=== PATIENT | female | born 1975 | race Caucasian/White ===

== ENCOUNTER → 2017-02-10 | Outpatient (CLI) | payer OTHER ==
[~2017-02-10] MED LIST: ABILIFY20 MG PO; ACARBOSE100 MG PO; ACCUNEB SO1.25 MG/1 INH; AMARYL4 MG; AMARYL4 MG PO; AMBIEN 10 MG TA10 MG PO; APAP500 PO; BENADRYL25 MG PO; CALCIUM 500 +1 EAC5 PO; CENTRUM COMPLE1 EACH; CLONAZEPAM PO; COMBIVENT; COMBIVENT INH; CYMBALTA60 MG PO; ESTROVEN ENER400 MCG PO; FISH OIL 1,001000 M2 PO; GARLIC OIL1 EACH PO; GLUCOPHAGE850 MG PO; GLUCOTROL5 MG PO; JANUVIA100 MG; LAMOTRIGINE200 MG PO; LASIX 40 MG TAB40 M1; LEVEMIR SUBQ; LISINOPRIL5 MG PO; MEDROL DOSPAK21 TAB PO; MOBIC15 MG; MOBIC15 MG PO; MUCINEX TA600 MG/TA2 PO; NEURONTIN300 MG PO; NORCO 5-325 TA1 EACH PO; NOVOLOG FL100 UNIT/M SUBQ; OXCARBAZEPINE300 M1 PO; SYMBICORT160 MCG/4.; TRINATE TABLET1 TAB PO; TYLENOL325 MG PO; ULTRAM 50MG TAB50 MG PO; VENTOLIN HFA 1818 GM INH; VITAMIN B-12500 MCG PO; VITAMIN D-32000 UNIT PO; VITAMIN E400 UNIT PO; ZOCOR 20 MG TAB20 M1 PO
--- NOTE | ~2017-02-10 | EEG ---
[facility] [place] [address] ELECTROENCEPHALOGRAM Name: BESSIE DICKSON Room #: REG JEREMYGeoff M.R.#: [id number] Admission: 02/10/17 Attend Phys: So Nunez DNP Discharge: Date of : 75 Report #: [id number] THIS REPORT FOR: //name// CC: So Nunez Kyle Daniel DATE OF EE02/10/2017 This patient is being evaluated for the possibility of seizure. EEG was done by placing the electrodes by standard 10-20 system of electrode placement. Both referential and sequential montages were used for recording. Background activity in this patient's EEG is about 11 Hz and 40 microvolts. This is a symmetrical activity. Photic stimulation is unremarkable. This patient become drowsy that is associated with bilateral slowing and a few vertex sharp waves on both sides, which were symmetrical throughout the record, no active epileptiform activity was noticed. IMPRESSION: This patient's EEG is within normal limits. No active epileptiform activity was noticed during this record. It might be mentioned that EEG can be normal in a patient with a seizure disorder. Thank you very much for this referral. <ELECTRONICALLY SIGNED> By: Jose Francisco Hopkins MD 02/12/17 0731 1920 2252 Jose Francisco Hopkins MD /nt
== END ==
LOC: NEURO 02-09 07:01
DX: R56.9 Unspecified convulsions (principal)

== ENCOUNTER 2019-01-06 11:21 | Emergency (ER) | payer OTHER ==
[~2019-01-06] VITALS: Ht 157.5 cm; Wt 92.5 kg
[2019-01-06 13:01] VITALS: BP 138/79
== END 2019-01-06 12:47 | disposition home or self-care (01) ==
LOC: ER 11:21
DX: M65.232 Calcific tendinitis, left forearm (principal); F17.210 Nicotine dependence, cigarettes, uncomplicated; J44.9 Chronic obstructive pulmonary disease, unspecified; E11.9 Type 2 diabetes mellitus without complications; F31.9 Bipolar disorder, unspecified; J45.909 Unspecified asthma, uncomplicated; M10.9 Gout, unspecified; E11.43 Type 2 diabetes mellitus with diabetic autonomic (poly)neuropathy; G47.30 Sleep apnea, unspecified; Z88.8 Allergy status to other drugs, medicaments and biological substances; Z86.73 Personal history of transient ischemic attack (TIA), and cerebral infarction without residual deficits; Z90.49 Acquired absence of other specified parts of digestive tract; Z91.041 Radiographic dye allergy status; Z88.6 Allergy status to analgesic agent; Z88.0 Allergy status to penicillin

== ENCOUNTER 2019-04-09 19:08 | Emergency (ER) | payer OTHER ==
[~2019-04-09] VITALS: Ht 157.5 cm; Wt 90.0 kg
[2019-04-09 19:28] VITALS: BP 143/71
[2019-04-09] MEDS ORDERED: MOBIC15 MG PO (20:08)
== END 2019-04-09 20:25 | disposition home or self-care (01) ==
LOC: ER 19:08
DX: S93.602A Unspecified sprain of left foot, initial encounter (principal); J44.9 Chronic obstructive pulmonary disease, unspecified; E11.40 Type 2 diabetes mellitus with diabetic neuropathy, unspecified; G47.30 Sleep apnea, unspecified; M10.9 Gout, unspecified; F17.210 Nicotine dependence, cigarettes, uncomplicated; Z86.73 Personal history of transient ischemic attack (TIA), and cerebral infarction without residual deficits; Z90.49 Acquired absence of other specified parts of digestive tract; Z98.51 Tubal ligation status; Z88.0 Allergy status to penicillin; Z88.6 Allergy status to analgesic agent; Z88.8 Allergy status to other drugs, medicaments and biological substances; Z79.4 Long term (current) use of insulin; Z79.899 Other long term (current) drug therapy; W01.0XXA Fall on same level from slipping, tripping and stumbling without subsequent striking against object, initial encounter; Y93.89 Activity, other specified; Y92.89 Other specified places as the place of occurrence of the external cause; Y99.8 Other external cause status

== ENCOUNTER 2019-05-29 13:36 | Emergency (ER) | payer OTHER ==
[~2019-05-29] VITALS: Ht 157.5 cm; Wt 84.8 kg
[2019-05-29 13:39] VITALS: BP 124/64
[2019-05-29 14:42] LABS: URINE BILIRUBIN NEGATIVE (Negative); URINE BLOOD NEGATIVE (Negative); URINE CLARITY SL CLOUDY; URINE COLOR YELLOW; URINE GLUCOSE-RANDOM* NEGATIVE (Negative); URINE KETONES NEGATIVE (Negative); URINE LEUKOCYTES-REFLEX TRACE (Negative); URINE NITRITE-REFLEX NEGATIVE (Negative); URINE PROTEIN (DIPSTICK) TRACE (Negative); URINE SPECIFIC GRAVITY >= 1.030 (1.005-1.035); URINE UROBILINOGEN 0.2 E.U./dl (0.2-1.0)
[2019-05-29] MEDS ORDERED: NORCO 5-325 TA1 EAC1 PO (15:28)
[2019-05-29] MEDS ORDERED: CYCLOBENZAPRINE5 MG PO (15:28)
== END 2019-05-29 15:35 | disposition home or self-care (01) ==
LOC: ER 13:36
PROVIDERS: Physician Assistant
DX: M51.26 Other intervertebral disc displacement, lumbar region (principal); J44.9 Chronic obstructive pulmonary disease, unspecified; E11.9 Type 2 diabetes mellitus without complications; F17.210 Nicotine dependence, cigarettes, uncomplicated; M10.9 Gout, unspecified; Z88.6 Allergy status to analgesic agent; Z88.0 Allergy status to penicillin; Z91.040 Latex allergy status; Z79.899 Other long term (current) drug therapy; Z79.4 Long term (current) use of insulin; Z86.73 Personal history of transient ischemic attack (TIA), and cerebral infarction without residual deficits; Z90.49 Acquired absence of other specified parts of digestive tract; Z98.51 Tubal ligation status

== ENCOUNTER 2019-05-31 15:51 | Emergency (ER) | payer OTHER ==
[~2019-05-31] VITALS: Ht 157.5 cm; Wt 83.5 kg
[~2019-05-31 15:51] MED LIST changes: +CYCLOBENZAPRINE5 MG PO; +NORCO 5-325 TA1 EAC1 PO
[2019-05-31] MEDS ORDERED: MOBIC7.5 MG PO (17:10)
[2019-05-31] MEDS ORDERED: ASPERCREME1 EACH TRANSDERM (17:10)
[2019-05-31 17:59] VITALS: BP 124/83
== END 2019-05-31 18:00 | disposition home or self-care (01) ==
LOC: ER 15:51
DX: M54.5 Low back pain (principal); E11.40 Type 2 diabetes mellitus with diabetic neuropathy, unspecified; J44.9 Chronic obstructive pulmonary disease, unspecified; M10.9 Gout, unspecified; G47.00 Insomnia, unspecified; F31.9 Bipolar disorder, unspecified; F17.210 Nicotine dependence, cigarettes, uncomplicated; Z90.89 Acquired absence of other organs; Z90.49 Acquired absence of other specified parts of digestive tract; Z98.890 Other specified postprocedural states; Z96.22 Myringotomy tube(s) status; Z79.4 Long term (current) use of insulin; Z88.0 Allergy status to penicillin; Z88.6 Allergy status to analgesic agent; Z88.2 Allergy status to sulfonamides; Z91.041 Radiographic dye allergy status

== ENCOUNTER 2019-08-20 10:25 | Emergency (ER) | payer OTHER ==
[~2019-08-20] VITALS: Ht 157.5 cm; Wt 83.5 kg
[~2019-08-20 10:25] MED LIST changes: +ASPERCREME1 EACH TRANSDERM; -LEVEMIR SUBQ; +LEVEMIR100 UNIT/1 SUBQ; +MOBIC7.5 MG PO
[2019-08-20 10:55] LABS: URINE BILIRUBIN NEGATIVE (Negative); URINE BLOOD NEGATIVE (Negative); URINE CLARITY CLEAR; URINE COLOR YELLOW; URINE GLUCOSE-RANDOM* 3+ (Negative); URINE KETONES TRACE (Negative); URINE LEUKOCYTES-REFLEX NEGATIVE (Negative); URINE NITRITE-REFLEX NEGATIVE (Negative); URINE PROTEIN (DIPSTICK) NEGATIVE (Negative); URINE UROBILINOGEN 0.2 E.U./dl (0.2-1.0)
[2019-08-20 11:06] LABS: AMP/METHAMP Negative (Negative); BARBITURATES Negative (Negative); BENZODIAZEPINES Negative (Negative); COCAINE Negative (Negative); METHADONE Negative (Negative); OPIATES Negative (Negative); PCP Negative (Negative)
[2019-08-20 11:53] LABS: ABSOLUTE NEUTROPHILS 5.8 thou/uL (1.4-8.2); EOSINOPHILS 0.4 % (0.0-3.0); HEMATOCRIT 46.3 % (37.0-47.0); HEMOGLOBIN 15.3 gm/dL (12.0-15.0); LYMPHOCYTES 24.2 % (24.0-44.0); MCH 30.4 pg (26.0-34.0); PLATELET COUNT 259 thou/uL (150-400); POLYS 69.4 % (36.0-66.0); RBC 5.03 mil/uL (4.20-5.00); RDW 13.4 % (10.5-14.5); WBC 8.4 thou/uL (4.0-11.0)
[2019-08-20 12:04] LABS: ANION GAP 8 mmol/L (7-16); BUN 6 mg/dL (7-18); CHLORIDE 99 mmol/L (98-107); CO2 28 mmol/L (21-32); CREATININE 0.6 mg/dL (0.6-1.0); GLUCOSE 316 mg/dL (74-106); POTASSIUM 4.5 mmol/L (3.5-5.1); SODIUM 135 mmol/L (136-145)
[2019-08-20 12:14] LABS: ALBUMIN 3.3 g/dL (3.4-5.0); LIPASE 75 U/L (73-393); MAGNESIUM 1.6 mg/dL (1.8-2.4); SGOT 21 U/L (15-37); SGPT 26 U/L (30-65); TOTAL BILIRUBIN 0.3 mg/dL (<0.1-1.0); TOTAL PROTEIN 6.3 g/dL (6.4-8.2); TROPONIN-I <0.06 ng/mL (<0.06)
[2019-08-20] MEDS ORDERED: LEVAQUIN 750 M750 MG PO (12:42)
[2019-08-20] MEDS ORDERED: TESSALON PERLE100 MG PO (12:42)
--- NOTE | 2019-08-20 13:59 | EKG ---
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 : 1975 Requested By: Joe Sawant Order Number: [id number] MD: Valeriano Bermeo Measurements Intervals [place] Rate: 80 P: 34 NM: 154 QRS: -16 QRSD: 84 T: 42 QT: 378 QTc: 436 Interpretive Statements Sinus rhythm Borderline left axis deviation Low voltage, precordial leads Baseline wander in lead(s) V2 Compared to ECG 07/07/2015 06:37:09 Low QRS voltage now present Electronically Signed On 08-20-2019 13:59:18 CDT by Valeriano Bermeo [email or web address] <ELECTRONICALLY SIGNED> By: Valeriano Bermeo MD 08/20/19 1359 1058 1058 Valeriano Bermeo MD /EPI
[2019-08-20 14:28] VITALS: BP 118/61
== END 2019-08-20 14:30 | disposition home or self-care (01) ==
LOC: ER 10:25
PROVIDERS: Emergency Medicine; Physician Assistant
DX: J44.9 Chronic obstructive pulmonary disease, unspecified (principal); J18.9 Pneumonia, unspecified organism; M54.5 Low back pain; M10.9 Gout, unspecified; E11.40 Type 2 diabetes mellitus with diabetic neuropathy, unspecified; F31.9 Bipolar disorder, unspecified; F17.210 Nicotine dependence, cigarettes, uncomplicated; Z98.890 Other specified postprocedural states; Z90.89 Acquired absence of other organs; Z90.49 Acquired absence of other specified parts of digestive tract; Z79.4 Long term (current) use of insulin; Z88.8 Allergy status to other drugs, medicaments and biological substances; Z88.6 Allergy status to analgesic agent; Z88.0 Allergy status to penicillin

== ENCOUNTER 2019-12-05 12:32 | Emergency (ER) | payer OTHER ==
[~2019-12-05] VITALS: Ht 157.5 cm; Wt 80.3 kg
[~2019-12-05 12:32] MED LIST changes: +LEVAQUIN 750 M750 MG PO; +TESSALON PERLE100 MG PO
[2019-12-05 17:38] VITALS: BP 134/88
[2019-12-05] MEDS ORDERED: ULTRAM 50MG TAB50 MG PO (17:49)
== END 2019-12-05 17:38 | disposition home or self-care (01) ==
LOC: ER 12:32
DX: M79.632 Pain in left forearm (principal); E11.9 Type 2 diabetes mellitus without complications; J44.9 Chronic obstructive pulmonary disease, unspecified; J45.909 Unspecified asthma, uncomplicated; M10.9 Gout, unspecified; G47.30 Sleep apnea, unspecified; F31.9 Bipolar disorder, unspecified; F17.210 Nicotine dependence, cigarettes, uncomplicated; Z86.73 Personal history of transient ischemic attack (TIA), and cerebral infarction without residual deficits; Z90.49 Acquired absence of other specified parts of digestive tract; Z98.51 Tubal ligation status; Z79.4 Long term (current) use of insulin; Z91.041 Radiographic dye allergy status; Z88.0 Allergy status to penicillin; Z88.6 Allergy status to analgesic agent; Z88.8 Allergy status to other drugs, medicaments and biological substances; W01.0XXA Fall on same level from slipping, tripping and stumbling without subsequent striking against object, initial encounter; Y93.89 Activity, other specified; Y92.89 Other specified places as the place of occurrence of the external cause; Y99.8 Other external cause status

== ENCOUNTER 2019-12-08 15:04 | Emergency (ER) | payer OTHER ==
[~2019-12-08] VITALS: Ht 157.5 cm; Wt 80.3 kg
[2019-12-08 16:08] LABS: ABSOLUTE NEUTROPHILS 5.5 thou/uL (1.4-8.2); EOSINOPHILS 0.6 % (0.0-3.0); HEMATOCRIT 44.4 % (37.0-47.0); HEMOGLOBIN 14.7 gm/dL (12.0-15.0); LYMPHOCYTES 27.8 % (24.0-44.0); MCH 29.6 pg (26.0-34.0); MCV 89.7 fL (80.0-100.0); MONOCYTES 4.6 % (1.0-8.0); PLATELET COUNT 314 thou/uL (150-400); RBC 4.95 mil/uL (4.20-5.00); RDW 13.2 % (10.5-14.5); WBC 8.3 thou/uL (4.0-11.0)
[2019-12-08 16:10] LABS: URINE BILIRUBIN NEGATIVE (Negative); URINE BLOOD NEGATIVE (Negative); URINE CLARITY CLEAR; URINE COLOR YELLOW; URINE GLUCOSE-RANDOM* 3+ (Negative); URINE KETONES NEGATIVE (Negative); URINE LEUKOCYTES-REFLEX NEGATIVE (Negative); URINE NITRITE-REFLEX NEGATIVE (Negative); URINE PROTEIN (DIPSTICK) NEGATIVE (Negative); URINE UROBILINOGEN 0.2 E.U./dl (0.2-1.0)
[2019-12-08 16:17] LABS: CALCIUM 8.3 mg/dL (8.5-10.1); CREATININE 0.8 mg/dL (0.6-1.0); POTASSIUM 3.6 mmol/L (3.5-5.1)
[2019-12-08 16:23] LABS: ALBUMIN 3.3 g/dL (3.4-5.0); TOTAL BILIRUBIN 0.2 mg/dL (<0.1-1.0); TOTAL PROTEIN 6.3 g/dL (6.4-8.2)
[2019-12-08] MEDS ORDERED: ONDANSETRON HCL4 M2 PO (17:09)
[2019-12-08] MEDS ORDERED: BENTYL 20 MG TA20 M1 PO (17:09)
[2019-12-08 17:21] VITALS: BP 110/54
--- NOTE | 2019-12-09 16:01 | NUR ---
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
== END 2019-12-08 17:28 | disposition home or self-care (01) ==
LOC: ER 15:04
PROVIDERS: Nurse Practitioner Family
DX: A08.4 Viral intestinal infection, unspecified (principal); E11.9 Type 2 diabetes mellitus without complications; J44.9 Chronic obstructive pulmonary disease, unspecified; J45.909 Unspecified asthma, uncomplicated; M10.9 Gout, unspecified; G47.30 Sleep apnea, unspecified; F31.9 Bipolar disorder, unspecified; F17.210 Nicotine dependence, cigarettes, uncomplicated; Z86.73 Personal history of transient ischemic attack (TIA), and cerebral infarction without residual deficits; Z90.49 Acquired absence of other specified parts of digestive tract; Z98.51 Tubal ligation status; Z91.041 Radiographic dye allergy status; Z88.0 Allergy status to penicillin; Z88.6 Allergy status to analgesic agent; Z88.8 Allergy status to other drugs, medicaments and biological substances

== ENCOUNTER 2019-12-30 15:02 | Emergency (ER) | payer OTHER ==
[~2019-12-30] VITALS: Ht 157.5 cm; Wt 81.7 kg
[~2019-12-30 15:02] MED LIST changes: +BENTYL 20 MG TA20 M1 PO; +ONDANSETRON HCL4 M2 PO
[2019-12-30 15:15] VITALS: BP 117/52
== END 2019-12-30 16:06 | disposition home or self-care (01) ==
LOC: ER 15:02
DX: S90.02XA Contusion of left ankle, initial encounter (principal); J44.9 Chronic obstructive pulmonary disease, unspecified; M10.9 Gout, unspecified; E11.40 Type 2 diabetes mellitus with diabetic neuropathy, unspecified; F17.210 Nicotine dependence, cigarettes, uncomplicated; F31.9 Bipolar disorder, unspecified; Z88.0 Allergy status to penicillin; Z88.8 Allergy status to other drugs, medicaments and biological substances; Z90.49 Acquired absence of other specified parts of digestive tract; X58.XXXA Exposure to other specified factors, initial encounter; Y93.89 Activity, other specified; Y92.89 Other specified places as the place of occurrence of the external cause; Y99.8 Other external cause status

== ENCOUNTER 2020-02-16 14:26 | Emergency (ER) | payer OTHER ==
[~2020-02-16] VITALS: Ht 154.9 cm; Wt 81.7 kg
[2020-02-16 14:30] VITALS: BP 121/71
[2020-02-16] MEDS ORDERED: MOBIC15 MG PO (14:59)
[2020-02-16] MEDS ORDERED: BACLOFEN5 MG PO (14:59)
[2020-02-16] MEDS ORDERED: LIDOCAINE PAIN1 EACH TRANSDERM (14:59)
== END 2020-02-16 15:13 | disposition home or self-care (01) ==
LOC: ER 14:26
DX: M54.6 Pain in thoracic spine (principal); M62.830 Muscle spasm of back; J44.9 Chronic obstructive pulmonary disease, unspecified; M10.9 Gout, unspecified; E11.40 Type 2 diabetes mellitus with diabetic neuropathy, unspecified; F17.210 Nicotine dependence, cigarettes, uncomplicated; Z88.0 Allergy status to penicillin; Z88.6 Allergy status to analgesic agent; Z88.8 Allergy status to other drugs, medicaments and biological substances; Z91.041 Radiographic dye allergy status; Z86.73 Personal history of transient ischemic attack (TIA), and cerebral infarction without residual deficits; Z98.51 Tubal ligation status

== ENCOUNTER 2020-02-24 14:47 | Emergency (ER) | payer OTHER ==
[~2020-02-24] VITALS: Ht 152.4 cm; Wt 86.2 kg
[~2020-02-24 14:47] MED LIST changes: +BACLOFEN5 MG PO; +LIDOCAINE PAIN1 EACH TRANSDERM
[2020-02-24 15:04] VITALS: BP 116/71
[2020-02-24] MEDS ORDERED: NEURONTIN 300300 M1 PO (15:41)
--- NOTE | 2020-02-25 08:14 | EKG ---
[facility] [place] [address] ELECTROCARDIOGRAM REPORT Name: BESSIE DICKSON [id number] Admission: 02/24/20 Attend Phys: Discharge: 02/24/20 Date of : 75 Report #: [id number] THIS REPORT FOR: cc: KOMAL - No family physician/PCP FAM - No family physician/PCP Zane Bailey MD [facility] THIS REPORT FOR: //name// 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
== END 2020-02-24 15:56 | disposition home or self-care (01) ==
LOC: ER 14:47
DX: S54.02XA Injury of ulnar nerve at forearm level, left arm, initial encounter (principal); F31.9 Bipolar disorder, unspecified; E11.40 Type 2 diabetes mellitus with diabetic neuropathy, unspecified; J44.9 Chronic obstructive pulmonary disease, unspecified; F17.210 Nicotine dependence, cigarettes, uncomplicated; Z86.73 Personal history of transient ischemic attack (TIA), and cerebral infarction without residual deficits; Z90.49 Acquired absence of other specified parts of digestive tract; Z98.890 Other specified postprocedural states; Z98.51 Tubal ligation status; Z79.899 Other long term (current) drug therapy; Z79.4 Long term (current) use of insulin; Z88.8 Allergy status to other drugs, medicaments and biological substances; Z88.0 Allergy status to penicillin; Z91.041 Radiographic dye allergy status; Z88.6 Allergy status to analgesic agent; X50.3XXA Overexertion from repetitive movements, initial encounter; Y93.89 Activity, other specified; Y92.89 Other specified places as the place of occurrence of the external cause; Y99.8 Other external cause status

== ENCOUNTER 2020-03-14 14:44 | Emergency (ER) | payer OTHER ==
[~2020-03-14] VITALS: Ht 152.4 cm; Wt 86.2 kg
[~2020-03-14 14:44] MED LIST changes: +NEURONTIN 300300 M1 PO
[2020-03-14 15:42] LABS: ABSOLUTE NEUTROPHILS 6.1 thou/uL (1.4-8.2); BASOPHILS 0.9 % (0.0-2.0); EOSINOPHILS 0.6 % (0.0-3.0); HEMATOCRIT 45.5 % (37.0-47.0); HEMOGLOBIN 15.8 gm/dL (12.0-15.0); LYMPHOCYTES 25.6 % (24.0-44.0); MCH 31.8 pg (26.0-34.0); MCHC 34.8 g/dL (28.0-37.0); MCV 91.3 fL (80.0-100.0); MONOCYTES 4.9 % (1.0-8.0); PLATELET COUNT 347 thou/uL (150-400); RBC 4.98 mil/uL (4.20-5.00)
[2020-03-14 15:42] LABS: URINE BILIRUBIN NEGATIVE (Negative); URINE BLOOD NEGATIVE (Negative); URINE CLARITY SL CLOUDY; URINE COLOR YELLOW; URINE GLUCOSE-RANDOM* 3+ (Negative); URINE KETONES NEGATIVE (Negative); URINE LEUKOCYTES-REFLEX NEGATIVE (Negative); URINE NITRITE-REFLEX NEGATIVE (Negative); URINE PROTEIN (DIPSTICK) NEGATIVE (Negative); URINE SPECIFIC GRAVITY <= 1.005 (1.005-1.035); URINE UROBILINOGEN 0.2 E.U./dl (0.2-1.0)
[2020-03-14 15:53] LABS: ALBUMIN 3.4 g/dL (3.4-5.0); CALCIUM 8.1 mg/dL (8.5-10.1); POTASSIUM 3.1 mmol/L (3.5-5.1); TOTAL BILIRUBIN 0.4 mg/dL (<0.1-1.0); TOTAL PROTEIN 6.5 g/dL (6.4-8.2)
[2020-03-14] MEDS ORDERED: IMODIUM A-D2 MG PO (16:46)
[2020-03-14] MEDS ORDERED: ZOFRAN ODT4 MG PO (16:46)
[2020-03-14] MEDS ORDERED: BENTYL 20 MG TA20 M1 PO (16:46)
[2020-03-14 17:09] VITALS: BP 115/60
== END 2020-03-14 17:09 | disposition home or self-care (01) ==
LOC: ER 14:44
PROVIDERS: Emergency Medicine
DX: K52.9 Noninfective gastroenteritis and colitis, unspecified (principal); R11.10 Vomiting, unspecified; J44.9 Chronic obstructive pulmonary disease, unspecified; E78.00 Pure hypercholesterolemia, unspecified; E11.40 Type 2 diabetes mellitus with diabetic neuropathy, unspecified; F17.210 Nicotine dependence, cigarettes, uncomplicated; Z86.73 Personal history of transient ischemic attack (TIA), and cerebral infarction without residual deficits; Z79.82 Long term (current) use of aspirin; Z90.49 Acquired absence of other specified parts of digestive tract; Z98.51 Tubal ligation status; Z79.4 Long term (current) use of insulin; Z88.8 Allergy status to other drugs, medicaments and biological substances; Z88.0 Allergy status to penicillin; Z88.6 Allergy status to analgesic agent; Z91.041 Radiographic dye allergy status

== ENCOUNTER 2020-07-05 13:29 | Emergency (ER) | payer OTHER ==
[~2020-07-05] VITALS: Ht 152.4 cm; Wt 77.1 kg
[~2020-07-05 13:29] MED LIST changes: +IMODIUM A-D2 MG PO; +ZOFRAN ODT4 MG PO
[2020-07-05 13:34] VITALS: BP 133/51
== END 2020-07-05 14:59 ==
LOC: ER 13:29
DX: L72.9 Follicular cyst of the skin and subcutaneous tissue, unspecified (principal); M79.642 Pain in left hand; J44.9 Chronic obstructive pulmonary disease, unspecified; E11.40 Type 2 diabetes mellitus with diabetic neuropathy, unspecified; F31.9 Bipolar disorder, unspecified; F41.9 Anxiety disorder, unspecified; F17.210 Nicotine dependence, cigarettes, uncomplicated; Z86.73 Personal history of transient ischemic attack (TIA), and cerebral infarction without residual deficits; Z90.49 Acquired absence of other specified parts of digestive tract; Z98.51 Tubal ligation status; Z98.890 Other specified postprocedural states; Z79.899 Other long term (current) drug therapy; Z79.2 Long term (current) use of antibiotics; Z79.4 Long term (current) use of insulin; Z88.8 Allergy status to other drugs, medicaments and biological substances; Z88.0 Allergy status to penicillin; Z88.6 Allergy status to analgesic agent; Z91.041 Radiographic dye allergy status